=== PATIENT | male | born 1985 | race Hispanic/Latino ===

== ENCOUNTER 2024-05-21 01:48 | Emergency (ER) | payer SELFPAY ==
[2024-05-21] MEDS ORDERED: LIDOCAINE 1% 20 ML MDV ONE (02:41)
[2024-05-21] MEDS ORDERED: IBUPROFEN 400 MG TAB ONE (02:41)
[2024-05-21] MEDS ORDERED: HYDROCODONE/APAP 5/325 MG TAB ONE (02:42)
[2024-05-21] MEDS ORDERED: TDAP (DIPHTH,PERTUSS(ACELL),TET VAC) 0.5 ML VIAL IMVAC ONE (02:42)
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
[2024-05-21 05:26] VITALS: TEMP 97.8
[2024-05-21 05:31] VITALS: O2SAT 96
[2024-05-21 05:33] VITALS: BP 123/65
== END 2024-05-21 05:22 | disposition home or self-care (01) ==
LOC: ER 01:48
DX: S01.511A Laceration without foreign body of lip, initial encounter (principal); S01.512A Laceration without foreign body of oral cavity, initial encounter
CPT/HCPCS: 12013; 96372; 99284; J2003